=== PATIENT | female | born 1940 | race Caucasian/White ===

== ENCOUNTER → 2016-12-31 | Outpatient (CLI) | payer OTHER ==
[~2016-12-31] MED LIST: ACETAMINOPHEN PO; ACIPHEX20 MG; ASPIRIN81 M1; ASPIRINEC PO; AVALIDE; AVALIDE PO; BENADRYL PO; BENEFIBER1 PKT PO; BENTYL10 MG; BENTYL10 MG PO; BENTYL20 MG DOB; CLIDINIUM-CDP C1 CAP; COLACE PO; COMBIVENT INH14.7 GM; COMBIVENT INH14.7 GM INH; CYCLOBENZAPRINE5 MG; CYCLOBENZAPRINE5 MG PO; DICYCLOMINE HCL20 MG; DICYCLOMINE HCL20 MG PO; FLAGYL PO; FLONASE16 GM; FLONASE16 GM INH; HCTZ PO; KCL; KCL PO; LEVAQUIN PO; LOTREL 5/10 MG1 CAP PO; LUBIPROSTONE; MACROBID 100 M100 MG PO; NABUMETONE PO; NEXIUM PO; NIFEDIAC CC90 MG; NIFEDIAC CC90 MG PO; PERCOCET5/325 PO; PLETAL100 MG; PLETAL100 MG PO; PRAVACHOL; PROCARDIA10 MG PO; RELAFEN; RELAFEN PO; ROBAXIN PO; SIMVASTATIN5 MG; SIMVASTATIN5 MG PO; TOPROL XL PO; TOPROL XL100 MG; TOPROL XL100 MG PO; VICODIN PO; VYTORIN 10/20 T1 TAB PO; ZETIA; ZOCOR80 MG PO; ZYRTEC
--- NOTE | ~2016-12-31 | US37 ---
[facility] A Service of [facility] & [facility] RADIOLOGY TEXT RESULTS PATIENT: NAVYA HUANG LOCATION: [facility] : 38 UNIT #: [id number] AGE: [address]: KRISTEL LUTZ APRN SEX: F ORDER DR: [id number] [facility] [address]. [place], [place] [address] [id number] O MR#: [id number] Acc #: [id number] NAME: NAVYA HUANG : 1940 SEX: F STUDY DATE/TIME: 12/31/2016 10:37 UNIT: [facility] ROOM: STUDY DESCRIPTION: US Carotid W/Doppler Bilateral Attending Physician: Kristel Lutz Aprn Referring Physician: Kristel Lutz Aprn Ordering Physician: Amina Mae A.P.R.N. Primary Care Physician: Silverio Lemon Jr., M.D. MEDICAL IMAGING REPORT This report is preliminary unless electronic signature is present EXAM Bilateral carotid duplex HISTORY Atherosclerosis. FINDINGS Duplex imaging of the carotid arteries was performed. The right common carotid artery is patent. Plaque is seen at the carotid bifurcation on the right side which is focal. Velocity is in the right common carotid is 68, internal is 105, external is 148 cm/sec. Right ICA/CCA ratio is 1.5. On the left side, plaque is seen in the left carotid bulb and at the bifurcation. Velocity in the left common carotid is 70, internal is 102 and external is 71 cm/sec. Left ICA/CCA ratio is 1.5. Antegrade flow is seen in the right and left vertebral artery. IMPRESSION Plaque with less than 50% stenosis is seen in the internal carotid arteries bilaterally. No hemodynamically significant stenosis is seen bilaterally. Antegrade flow is seen in the right and left vertebral arteries. Dictated by... Mikel Olson M.D. THIS IS AN ELECTRONICALLY VERIFIED REPORT Mikel Olson M.D. at 01/03/2017 2:06 PM [facility] A Service of [facility] & [facility] RADIOLOGY TEXT RESULTS PATIENT: NAVYA HUANG LOCATION: [facility] #: [id number] : 38 UNIT #: [id number] AGE: [address]: KRISTEL LUTZ APRN SEX: F ORDER DR: TD: 12/31/2016 21:04 JOB #: [id number] MEDICAL IMAGING REPORT Page 1 of 1 COPY
--- NOTE | ~2016-12-31 | US135 ---
[facility] A Service of [facility] RADIOLOGY TEXT RESULTS PATIENT: NAVYA HUANG LOCATION: [facility] : 38 UNIT #: [id number] AGE: [address]: KRISTEL LUTZ APRN SEX: F ORDER DR: [id number] [facility] [address] [place], [place] [address] [id number] O MR#: [id number] Acc #: [id number] NAME: NAVYA HUANG : 1940 SEX: F STUDY DATE/TIME: 12/31/2016 9:50 UNIT: [facility] ROOM: STUDY DESCRIPTION: US U/L Ext Art Study Comp Kade Attending Physician: Kristel Lutz Aprn Referring Physician: Kristel Lutz Aprn Ordering Physician: Amina Mae A.P.R.N. Primary Care Physician: Silverio Lemon Jr., M.D. MEDICAL IMAGING REPORT This report is preliminary unless electronic signature is present EXAM Bilateral lower extremity, 12/31/16 HISTORY Atherosclerosis. Claudication. FINDINGS Waveforms are biphasic from the thigh to the ankle levels bilaterally. Doppler waveforms are monophasic at the dorsalis pedis and posterior tibial arteries at the ankles bilaterally. Right brachial pressure is 164. Left brachial pressure is 155 mmHg. On the right side, high thigh is 152, low thigh 86, calf pressure 17, posterior tibial 78, dorsalis pedis 82, great toe 68 for a right ankle to brachial index of 0.50. On the left side, high thigh pressure is 116, low thigh 82, calf pressure 76, dorsalis pedis is 66, posterior tibial 82, great toe is 54 for a left ankle-brachial index of 0.50. IMPRESSION Moderate peripheral vascular disease is seen in the lower extremities bilaterally with GOOD of 0.5 on the right and 0.5 on the left. Segmental pressures indicate aortoiliac and femoral arterial disease bilaterally. Dictated by... Mikel Olson M.D. [facility] A Service of [facility] RADIOLOGY TEXT RESULTS PATIENT: NAVYA HUANG LOCATION: [facility] #: [id number] : 38 UNIT #: [id number] AGE: [address]: KRISTEL LUTZ APRN SEX: F ORDER DR: THIS IS AN ELECTRONICALLY VERIFIED REPORT Mikel Olson M.D. at 01/03/2017 2:06 PM Aureliano TD: 12/31/2016 20:38 JOB #: [id number] MEDICAL IMAGING REPORT Page 1 of 1 COPY
--- NOTE | ~2016-12-31 | US10 ---
[id number] [facility]. [facility] [address] [place], [place] [address] [id number] O MR#: [id number] Acc #: [id number] NAME: NAVYA HUANG : 1940 SEX: F STUDY DATE/TIME: 12/31/2016 10:55 UNIT: [facility] ROOM: STUDY DESCRIPTION: US Aorta Complete Attending Physician: Jose Walker Aprn Referring Physician: Jose Walker Aprn Ordering Physician: Amina Mae A.P.R.N. Primary Care Physician: Silverio Lemon Jr., M.D. MEDICAL IMAGING REPORT This report is preliminary unless electronic signature is present EXAM Abdominal aortic duplex, 12/31/2016 HISTORY Abdominal aortic aneurysm. FINDINGS Duplex imaging of the abdominal aorta was performed. The proximal abdominal aorta is patent and measures 1.5 cm in maximal diameter. There is a small abdominal aortic aneurysm from the mid to distal abdominal aorta measuring 3.2 cm x 2.6 cm in maximum diameter. The right and left common iliac arteries are normal and measure 1.3 cm on the right side and 0.89 cm on the left side. IMPRESSION Small distal abdominal aortic aneurysm measuring 3.2 cm x 2.6 cm in maximal dimensions. Dictated by... Mikel Olson M.D. THIS IS AN ELECTRONICALLY VERIFIED REPORT Mikel Olson M.D. at 01/03/2017 2:06 PM Ramy TD: 12/31/2016 21:13 JOB #: [id number] MEDICAL IMAGING REPORT Page 1 of 1 COPY
== END | disposition home or self-care (01) ==
LOC: CGUS 09:19
DX: I65.23 Occlusion and stenosis of bilateral carotid arteries (principal); I73.9 Peripheral vascular disease, unspecified; I71.4 Abdominal aortic aneurysm, without rupture
CPT/HCPCS: 76770; 93880; 93923